=== PATIENT | female | born 1930 | race Caucasian/White ===

== ENCOUNTER 2017-06-09 10:17 | Emergency (ER) | payer OTHER ==
[~2017-06-09] VITALS: Ht 162.6 cm; Wt 55.0 kg
[2017-06-09 10:25] VITALS: BP 172/74; PULSE 80; RESP 20; TEMP 97.9; O2SAT 99
[2017-06-09] MEDS ORDERED: METF1000 PO (10:31)
[2017-06-09] MEDS ORDERED: GLIP5TAB8 PO (10:31)
[2017-06-09] MEDS ORDERED: LOTE20TA PO (10:31)
[2017-06-09] MEDS ORDERED: MELO7.5T27 PO (10:31)
[2017-06-09 10:53] LABS: AUTOMATED NEUTROPHIL # 4.4 TH/MM3 (1.8-7.7); BASOPHIL # 0.1 TH/MM3 (0-0.2); BASOPHIL % 0.9 % (0.0-2.0); EOSINOPHIL # 0.1 TH/MM3 (0-0.4); EOSINOPHIL % 1.8 % (0.0-4.0); HEMATOCRIT 37.2 % (35.0-46.0); HEMOGLOBIN 12.3 GM/DL (11.6-15.3); LYMPH % 19.6 % (9.0-44.0); LYMPHOCYTE # 1.2 TH/MM3 (1.0-4.8); MEAN CELL VOLUME 87.8 FL (80.0-100.0); MEAN CORPUSCULAR HEMOGLOBIN 29.1 PG (27.0-34.0); MEAN CORPUSCULAR HGB CONC 33.1 % (32.0-36.0); MEAN PLATELET VOLUME 7.6 FL (7.0-11.0); MONO % 5.6 % (0.0-8.0); MONOCYTE # 0.3 TH/MM3 (0-0.9); NEUT % 72.1 % (16.0-70.0); PLATELET COUNT 444 TH/MM3 (150-450); RED BLOOD COUNT 4.24 MIL/MM3 (4.00-5.30); RED CELL DISTRIBUTION WIDTH 14.3 % (11.6-17.2); WHITE BLOOD COUNT 6.1 TH/MM3 (4.0-11.0)
[2017-06-09 11:12] LABS: ALBUMIN 3.8 GM/DL (3.4-5.0); BICARBONATE 26.9 MEQ/L (21.0-32.0); BLOOD UREA NITROGEN 20 MG/DL (7-18); CALCIUM 8.6 MG/DL (8.5-10.1); CHLORIDE 105 MEQ/L (98-107); CREATININE 0.93 MG/DL (0.50-1.00); GLOMERULAR FILTRATION RATE 57 ML/MIN (>89); GLUCOSE,RANDOM 193 MG/DL (74-106); SODIUM (NA) 138 MEQ/L (136-145)
[2017-06-09 11:15] LABS: ALKALINE PHOSPHATASE 38 U/L (45-117); ALT (GPT) 32 U/L (10-53); AST (GOT) 31 U/L (15-37); TOTAL BILIRUBIN ADULT 0.3 MG/DL (0.2-1.0); TOTAL PROTEIN 6.9 GM/DL (6.4-8.2)
--- NOTE | 2017-06-09 11:44 | PD ---
HPI Chief Complaint: General Weakness Time Seen by Provider: 11:25 Travel History International Travel<30 days: No Contact w/Intl Traveler<30days: No Traveled to known affect area: No History of Present Illness HPI 86-year-old female that presents to the ED for evaluation of generalized weakness. Apparently per patient she woke up feeling weak. Patient apparently had complained to the senior living that she was feeling somewhat weak today when she woke up. She noted anything and she does have a history of diabetes and states that she took her medications. She took glipizide and metformin. She states that for the most part now since she's been here she's been feeling better. Per ED nurse she had a blood sugar of 55 and was given oral glucose as well as Gatorade and food and her sugars went up. Patient currently walking and ambulatory in no sign of acute distress. Denies any urinary or bowel movement issues. No nausea or vomiting. No chest or shortness of breath. She was dysuria is to go home when I go to evaluate her. She denies ever falling or injuring her head. She denies any blood thinner use. She denies any symptoms at this time. Allergy to sulfa. [facility] Past Medical History Arthritis: Yes Cardiovascular Problems: Yes Diabetes: Yes Patient Takes Glucophage: Yes Hypertension: Yes Tetanus Vaccination: Unknown Past Surgical History Appendectomy: Yes Hysterectomy: Yes Social History Alcohol Use: No Tobacco Use: No Substance Use: No Allergies-Medications (Allergen,Severity, Reaction): Coded Allergies: Sulfa (Sulfonamide Antibiotics) (Unverified Allergy, Severe, 06/09/17) RASH,MOUTH REYES Uncoded Allergies: SULFA-RASH, MOUTH REYES (Allergy, Unknown, 09/25/03) Reported Meds & Prescriptions Reported Meds & Active Scripts Active Reported Glipizide 5 Mg Tab 5 Mg PO BIDAC Take 30 minutes before a meal Meloxicam 7.5 Mg Tab 7.5 Mg PO BID Metformin (Metformin HCl) 1,000 Mg Tab 1,000 Mg PO BIDPC Lotensin (Benazepril HCl) 20 Mg Tab 20 Mg PO DAILY Review of Systems Except as stated in HPI: all other systems reviewed are Neg Physical Exam Narrative GENERAL: SKIN: Warm and dry. HEAD: Atraumatic. Normocephalic. EYES: Pupils equal and round 4 mm reactive to light and accommodation.. No scleral icterus. No injection or drainage. ENT: No nasal bleeding or discharge. Mucous membranes pink and moist. Tongue is midline. No uvula deviation. NECK: Trachea midline. No JVD. CARDIOVASCULAR: Regular rate and rhythm. No murmurs, S3, S4. RESPIRATORY: No accessory muscle use. Clear to auscultation. Breath sounds equal bilaterally. GASTROINTESTINAL: Abdomen soft, non-tender, nondistended. Hepatic and splenic margins not palpable. MUSCULOSKELETAL: Extremities without clubbing, cyanosis, or edema. No obvious deformities. Full range of motion of the upper and lower extremities bilaterally. 2+ pulses bilaterally. NEUROLOGICAL: Awake and alert. No obvious cranial nerve deficits. Motor grossly within normal limits. Five out of 5 muscle strength in the arms and legs. Normal speech. PSYCHIATRIC: Appropriate mood and affect; insight and judgment normal. Data Data Last Documented VS Vital Signs Date Time Temp Pulse Resp B/P (MAP) Pulse Ox O2 Delivery O2 Flow Rate FiO2 06/09/17 10:25 97.9 80 20 172/74 (106) 99 Orders Orders Blood Glucose (06/09/17 10:31) Electrocardiogram (06/09/17 10:31) Complete Blood Count With Diff (06/09/17 10:31) Comprehensive Metabolic Panel (06/09/17 10:31) Iv Access Insert/Monitor (06/09/17 10:31) Ed Discharge Order (06/09/17 11:37) Labs Laboratory Tests Test 06/09/17 10:35 White Blood Count 6.1 TH/MM3 Red Blood Count 4.24 MIL/MM3 Hemoglobin 12.3 GM/DL Hematocrit 37.2 % Mean Corpuscular Volume 87.8 FL Mean Corpuscular Hemoglobin 29.1 PG Mean Corpuscular Hemoglobin Concent 33.1 % Red Cell Distribution Width 14.3 % Platelet Count 444 TH/MM3 Mean Platelet Volume 7.6 FL Neutrophils (%) (Auto) 72.1 % Lymphocytes (%) (Auto) 19.6 % Monocytes (%) (Auto) 5.6 % Eosinophils (%) (Auto) 1.8 % Basophils (%) (Auto) 0.9 % Neutrophils # (Auto) 4.4 TH/MM3 Lymphocytes # (Auto) 1.2 TH/MM3 Monocytes # (Auto) 0.3 TH/MM3 Eosinophils # (Auto) 0.1 TH/MM3 Basophils # (Auto) 0.1 TH/MM3 CBC Comment DIFF FINAL Differential Comment Blood Urea Nitrogen 20 MG/DL Creatinine 0.93 MG/DL Random Glucose 193 MG/DL Total Protein 6.9 GM/DL Albumin 3.8 GM/DL Calcium Level 8.6 MG/DL Alkaline Phosphatase 38 U/L Aspartate Amino Transf (AST/SGOT) 31 U/L Alanine Aminotransferase (ALT/SGPT) 32 U/L Total Bilirubin 0.3 MG/DL Sodium Level 138 MEQ/L Potassium Level 4.1 MEQ/L Chloride Level 105 MEQ/L Carbon Dioxide Level 26.9 MEQ/L Anion Gap 6 MEQ/L Estimat Glomerular Filtration Rate 57 ML/MIN MDM Medical Decision Making Medical Screen Exam Complete: Yes Emergency Medical Condition: Yes Medical Record Reviewed: Yes Interpretation(s) CBC & BMP Diagram 06/09/17 10:35 Total Protein 6.9, Albumin 3.8, Calcium Level 8.6, Alkaline Phosphatase 38 L, Aspartate Amino Transf (AST/SGOT) 31, Alanine Aminotransferase (ALT/SGPT) 32, Total Bilirubin 0.3 Differential Diagnosis Hypoglycemia versus weakness versus normal exam Narrative Course 86-year-old female that presents to the ED for evaluation of generalized weakness and hypoglycemia. Patient was properly examined and was found to have signs and symptoms consistent with a symptomatic hypoglycemia. Patient does tell me that yesterday she did not eat. She does take glipizide and metformin and she did took her medications today per patient. Patient was found to have a blood sugar 55. Here her blood sugar has been in the 170s and patient appears to be completely symptomatic. She is ambulating in acute distress. No other focal findings noted. Patient had basic blood work done by triage before I went into the room and it shows no sign of acute disease. Patient is here is to go home. Case was discussed in my attending Dr. Farrell who agrees that the patient can be discharged back to facility with instructions to monitor her blood sugars. Follow up with PCP. See ED if worst. Diagnosis Primary Impression: Hypoglycemia Patient Instructions: General Instructions Additional Instructions: Follow with PCP. See ED worsening symptoms. Monitor blood sugars. Med/Other Pt SpecificInfo: No Change to Meds Disposition: 01 DISCHARGE HOME Condition: Stable Wiley Chin Jun 09, 2017 11:43
[2017-06-09 13:48] VITALS: BP 146/69
--- NOTE | 2017-06-10 16:03 | EKG ---
Date Performed: 06/09/2017 Time Performed: 10:52:13 PTAGE: 86 years EKG: Sinus rhythm ST DEVIATION AND MODERATE T-WAVE ABNORMALITY, CONSIDER LATERAL ISCHEMIA ABNORMAL ECG PREVIOUS TRACING : 08/21/1999 14.41 Since previous tracing, no significant change noted DOCTOR: Artemio Gross Interpretating Date/Time 06/10/2017 16:02:39
== END 2017-06-09 13:52 | disposition home or self-care (01) ==
LOC: NEPE 10:17 → NEDAMB 13:52
DX: E11.649 Type 2 diabetes mellitus with hypoglycemia without coma (principal); I10 Essential (primary) hypertension; M19.90 Unspecified osteoarthritis, unspecified site
CPT/HCPCS: 80053; 85025; 93005; 99284

== ENCOUNTER 2018-04-06 21:51 | Inpatient (IN) ==
--- NOTE | 2018-04-06 22:20 | ED ---
HPI General Chief Complaint: Altered Mental Status Stated Complaint: Confussion/SDFR Time Seen by Provider: 04/06/18 22:10 Source: patient and EMS Mode of arrival: EMS Limitations: altered mental status History of Present Illness HPI narrative: 87-year-old female presents to the emergency department from home by EMS transport after neighbors reportedly found her on the floor and closed in her home. They noted that she appeared more confused than her baseline. The patient here does not recall being found on the floor does not recall her neighbors coming to her house. This occurred just prior to arrival of EMS bringing the patient to the hospital. Patient has history of diabetes. Patient reports she lives alone. Patient reports she has not eaten well today. Patient denies having a fall or injury. Paramedics report that patient was found by friends who reportedly do not routinely check on her but noticed her to be on the floor called paramedics to transfer the patient blood sugar was stable blood pressure was mildly elevated patient was identified as superficial abrasion to the right forearm no other injuries were identified. Patient here is oriented to the month of March thinks it is the third day of the week does not know the year is aware that she is in the hospital does not know how she arrived here. Denies any head pain neck pain back pain chest pain rib pain abdominal pain pelvic pain or extremity pain. Denies any recent fever denies shortness of breath. Denies being nauseated. Does not report any vomiting or diarrhea. Patient is unable to identify her medication list. Patient is very concerned that her best friend Tonny will be concerned about her not being home. No other information available. MD complaint: Reports altered mental status, confusion and weakness; Denies decreased responsiveness and intoxication Onset (ago): hour(s) (reportedly awakened at 9 AM this morning ) Timing confirmed by: other (patient) Severity: moderate Consistency of symptoms: unknown Context: Reports trauma (found on the floor) and diabetes; Denies change in medication Associated symptoms: Denies chest pain, cough, diaphoresis, fever, chills, headaches, loss of appetite, malaise, nausea/vomiting, rash, seizure, shortness of breath, syncope, weakness, foul smelling urine, difficulty walking, diarrhea and incontinence Treatments prior to arrival: Reports other (none) Related Data Home Medications Medication Instructions Recorded Confirmed Unable to Obtain Home Meds 11/08/18 11/08/18 Allergies Allergy/AdvReac Type Severity Reaction Status Date / Time Sulfa (Sulfonamide Allergy Severe Confusion Unverified 04/06/18 22:14 Antibiotics) Review of Systems ROS: all other systems reviewed are negative PMFSH History History Provided By: Medical Record (Diabetes hypertension cholecystectomy appendectomy) Medical History Medical History Diabetes (Acute) High blood pressure (Acute) Social History Social History Smoking Status: Never smoker How Often Do You Have a Drink Containing Alcohol: Unable to Obtain Recent Out of Country Travel within the Last 8 Weeks: No Exam Narrative Exam Narrative: GENERAL: Well-developed pleasant elderly female in no acute respiratory distress oriented to person place and month but not events. SKIN: Focused skin assessment warm/dry. Superficial skin tear to the right dorsal forearm. HEAD: Atraumatic. Normocephalic. No scalp soft tissue swelling or tenderness to palpation no bony abnormality. EYES: Pupils equal and round and reactive to light. No scleral icterus. No injection or drainage. ENT: No nasal bleeding or discharge. Mucous membranes pink and moist. Airway is patent NECK: Trachea midline. No JVD. No midline tenderness to direct palpation along the cervical spine. No bony step-off CARDIOVASCULAR: Regular rate and rhythm. No murmur appreciated. RESPIRATORY: No accessory muscle use. Clear to auscultation. Breath sounds equal bilaterally. GASTROINTESTINAL: Abdomen soft, non-tender, nondistended. Hepatic and splenic margins not palpable. MUSCULOSKELETAL: No obvious deformities. No clubbing. No cyanosis. No edema. Radial dorsalis pedis pulses 2+ to palpation. NEUROLOGICAL: Awake and alert. GCS 15 mildly confused regarding events. No obvious cranial nerve deficits. Motor grossly within normal limits. Normal speech. PSYCHIATRIC: Appropriate mood and affect; insight and judgment normal. Course Initial Documented Vital Signs Temperature 98.4 F 04/06/18 22:17 Pulse Rate 86 04/06/18 22:17 Respiratory Rate 18 04/06/18 22:17 Blood Pressure 193/99 H 04/06/18 22:17 Pulse Oximetry 94 L 04/06/18 22:17 Last Documented Vital Signs Temperature 98.4 F 04/06/18 22:17 Pulse Rate 82 04/06/18 23:53 Respiratory Rate 18 04/06/18 23:53 Blood Pressure 163/76 H 04/06/18 23:53 Pulse Oximetry 95 04/06/18 23:53 Medical Decision Making MDM Narrative Medical decision making narrative: 87-year-old female presents with mild confusion after reportedly being found on the floor in her home by her neighbors. IV access obtained specimens collected and sent for resulting EKG ordered which identifies sinus rhythm rate [address] elevation or injury pattern artifact is present at baseline. Patient was placed on conveyor monitor with continuous pulse oximetry. Labs resulted patient identified to have mild leukocytosis with left shift urinalysis is abnormal with many bacteria also identified to have moderate blood with only 4 RBCs and CK is elevated at 1700 concerning for rhabdomyolysis cultures obtained and lactic acid ordered due to white count elevation and urinalysis abnormality will start on antibiotic after blood cultures obtained rule out sepsis at this time patient is not tachycardic she is not tachypneic she is not febrile and she is normotensive to elevated blood pressure. Patient also identified to have mild renal insufficiency most likely reflecting her renal function due to long duration on the floor possibly and rhabdomyolysis. CT brain noncontrast reveals no bleed extensive ischemic and microvascular disease changes also noted to have possibly age-indeterminate lacunar infarct. Patient's case discussed with on-call medicine service [facility], Dr Travis, for admission. Medical Screen Exam Complete: Yes Emergency Medical Condition: Yes Lab Data Result diagrams: 04/06/18 22:30 04/06/18 22:30 Lab Results 04/06/18 04/06/18 04/06/18 Range/Units 22:30 22:30 22:30 WBC 13.3 H (4.0-11.0) th/mm3 RBC 4.29 (4.00-5.30) mil/mm3 Hgb 12.6 (11.6-15.3) gm/dL Hct 38.1 (35.0-46.0) % MCV 88.9 (80.0-100.0) fL MCH 29.5 (27.0-34.0) pg MCHC 33.2 (32.0-36.0) % RDW 14.2 (11.6-17.2) % Plt Count 420 (150-450) th/mm3 MPV 8.5 (7.0-11.0) fL Neut % (Auto) 87.7 H (16.0-70.0) % Lymph % (Auto) 6.6 L (9.0-44.0) % [place] % (Auto) 5.3 (0.0-8.0) % Eos % (Auto) 0.1 (0.0-4.0) % Baso % (Auto) 0.3 (0.0-2.0) % Neut # (Auto) 11.6 H (1.8-7.7) th/mm3 Lymph # (Auto) 0.9 L (1.0-4.8) th/mm3 [place] # (Auto) 0.7 (0.0-0.9) th/mm3 Eos # (Auto) 0.0 (0.0-0.4) th/mm3 Baso # (Auto) 0.0 (0.0-0.2) th/mm3 WBC Differential . Differential Comment Auto diff final PT 11.4 (9.8-11.6) sec INR 1.1 Ratio APTT 22.1 L (23.4-31.7) sec Sodium 141 (136-145) meq/L Potassium 3.7 (3.5-5.1) meq/L Chloride 104 (98-107) meq/L Carbon Dioxide 24.3 (21.0-32.0) meq/L Anion Gap 13 (5-15) meq/L BUN 32 H (7-18) mg/dL Creatinine 1.01 H (0.50-1.00) mg/dL Estimated GFR 52 L (>89) mL/min POC Glucose (68-110) mg/dl Random Glucose 252 H (74-106) mg/dL Calcium 8.9 (8.5-10.1) mg/dL Magnesium 1.7 (1.5-2.5) mg/dL Total Bilirubin 0.9 (0.2-1.0) mg/dL AST 53 H (15-37) U/L ALT 35 (10-53) U/L Alkaline Phosphatase 46 (45-117) U/L Ammonia (11-32) mcmol/L Total Creatine Kinase 1762 H (26-192) U/L CK-MB (CK-2) 18.2 H (0.5-3.6) ng/mL CK-MB (CK-2) % 1.0 (0.0-4.0) % Troponin I Less than 0.02 L (0.02-0.05) ng/mL Total Protein 7.2 (6.4-8.2) g/dL Albumin 3.9 (3.4-5.0) g/dL TSH 1.220 (0.358-3.740) uIU/mL Urine Color (Yellw/Straw) Urine Clarity (Clear) Urine pH (5.0-8.5) Ur Specific [place] (1.002-1.035) Urine Protein (Neg-Trace) mg/dL Urine Glucose (UA) (Negative) mg/dL Urine Ketones (Negative) mg/dL Urine Occult Blood (Negative) Urine Nitrate (Negative) Urine Bilirubin (Negative) Urine Urobilinogen (Less than 2) mg/dL Ur Leukocyte Esterase (Negative) Urine RBC (0-3) /hpf Urine WBC (0-5) /hpf Urine WBC Clumps (None) Urine Bacteria (None) /hpf Hyaline Casts (0-3) /lpf Urine Mucus (Occasional) /lpf Micro UA Comment Ur Microscopic Review Urine Culture Comments Urine Opiates Screen (Neg) Ur Barbiturates Screen (Neg) Ur Amphetamines Screen (Neg) U Benzodiazepines Scrn (Neg) Urine Cocaine Screen (Neg) U Cannabinoids Screen (Neg) Serum Alcohol Less than 3 (0-5) mg/dL 04/06/18 04/06/18 04/06/18 Range/Units 22:30 22:30 22:30 WBC (4.0-11.0) th/mm3 RBC (4.00-5.30) mil/mm3 Hgb (11.6-15.3) gm/dL Hct (35.0-46.0) % MCV (80.0-100.0) fL MCH (27.0-34.0) pg MCHC (32.0-36.0) % RDW (11.6-17.2) % Plt Count (150-450) th/mm3 MPV (7.0-11.0) fL Neut % (Auto) (16.0-70.0) % Lymph % (Auto) (9.0-44.0) % [place] % (Auto) (0.0-8.0) % Eos % (Auto) (0.0-4.0) % Baso % (Auto) (0.0-2.0) % Neut # (Auto) (1.8-7.7) th/mm3 Lymph # (Auto) (1.0-4.8) th/mm3 [place] # (Auto) (0.0-0.9) th/mm3 Eos # (Auto) (0.0-0.4) th/mm3 Baso # (Auto) (0.0-0.2) th/mm3 WBC Differential Differential Comment PT (9.8-11.6) sec INR Ratio APTT (23.4-31.7) sec Sodium (136-145) meq/L Potassium (3.5-5.1) meq/L Chloride (98-107) meq/L Carbon Dioxide (21.0-32.0) meq/L Anion Gap (5-15) meq/L BUN (7-18) mg/dL Creatinine (0.50-1.00) mg/dL Estimated GFR (>89) mL/min POC Glucose (68-110) mg/dl Random Glucose (74-106) mg/dL Calcium (8.5-10.1) mg/dL Magnesium (1.5-2.5) mg/dL Total Bilirubin (0.2-1.0) mg/dL AST (15-37) U/L ALT (10-53) U/L Alkaline Phosphatase (45-117) U/L Ammonia Less than 10 L (11-32) mcmol/L Total Creatine Kinase (26-192) U/L CK-MB (CK-2) (0.5-3.6) ng/mL CK-MB (CK-2) % (0.0-4.0) % Troponin I (0.02-0.05) ng/mL Total Protein (6.4-8.2) g/dL Albumin (3.4-5.0) g/dL TSH (0.358-3.740) uIU/mL Urine Color Yellow (Yellw/Straw) Urine Clarity Cloudy H (Clear) Urine pH 5.0 (5.0-8.5) Ur Specific [place] 1.012 (1.002-1.035) Urine Protein 30 H (Neg-Trace) mg/dL Urine Glucose (UA) 500 or greater (Negative) mg/dL Urine Ketones 20 (Negative) mg/dL Urine Occult Blood Moderate H (Negative) Urine Nitrate Positive H (Negative) Urine Bilirubin Negative (Negative) Urine Urobilinogen Less than 2 (Less than 2) mg/dL Ur Leukocyte Esterase Large H (Negative) Urine RBC 4 H (0-3) /hpf Urine WBC 159 H (0-5) /hpf Urine WBC Clumps Few H (None) Urine Bacteria Many H (None) /hpf Hyaline Casts 2 (0-3) /lpf Urine Mucus Few H (Occasional) /lpf Micro UA Comment Cath-culture ind Ur Microscopic Review Not Reportable Urine Culture Comments Cath-cult indicated Urine Opiates Screen Neg (Neg) Ur Barbiturates Screen Neg (Neg) Ur Amphetamines Screen Neg (Neg) U Benzodiazepines Scrn Pos H (Neg) Urine Cocaine Screen Neg (Neg) U Cannabinoids Screen Neg (Neg) Serum Alcohol (0-5) mg/dL 04/06/18 Range/Units 22:36 WBC (4.0-11.0) th/mm3 RBC (4.00-5.30) mil/mm3 Hgb (11.6-15.3) gm/dL Hct (35.0-46.0) % MCV (80.0-100.0) fL MCH (27.0-34.0) pg MCHC (32.0-36.0) % RDW (11.6-17.2) % Plt Count (150-450) th/mm3 MPV (7.0-11.0) fL Neut % (Auto) (16.0-70.0) % Lymph % (Auto) (9.0-44.0) % [place] % (Auto) (0.0-8.0) % Eos % (Auto) (0.0-4.0) % Baso % (Auto) (0.0-2.0) % Neut # (Auto) (1.8-7.7) th/mm3 Lymph # (Auto) (1.0-4.8) th/mm3 [place] # (Auto) (0.0-0.9) th/mm3 Eos # (Auto) (0.0-0.4) th/mm3 Baso # (Auto) (0.0-0.2) th/mm3 WBC Differential Differential Comment PT (9.8-11.6) sec INR Ratio APTT (23.4-31.7) sec Sodium (136-145) meq/L Potassium (3.5-5.1) meq/L Chloride (98-107) meq/L Carbon Dioxide (21.0-32.0) meq/L Anion Gap (5-15) meq/L BUN (7-18) mg/dL Creatinine (0.50-1.00) mg/dL Estimated GFR (>89) mL/min POC Glucose 249 H (68-110) mg/dl Random Glucose (74-106) mg/dL Calcium (8.5-10.1) mg/dL Magnesium (1.5-2.5) mg/dL Total Bilirubin (0.2-1.0) mg/dL AST (15-37) U/L ALT (10-53) U/L Alkaline Phosphatase (45-117) U/L Ammonia (11-32) mcmol/L Total Creatine Kinase (26-192) U/L CK-MB (CK-2) (0.5-3.6) ng/mL CK-MB (CK-2) % (0.0-4.0) % Troponin I (0.02-0.05) ng/mL Total Protein (6.4-8.2) g/dL Albumin (3.4-5.0) g/dL TSH (0.358-3.740) uIU/mL Urine Color (Yellw/Straw) Urine Clarity (Clear) Urine pH (5.0-8.5) Ur Specific [place] (1.002-1.035) Urine Protein (Neg-Trace) mg/dL Urine Glucose (UA) (Negative) mg/dL Urine Ketones (Negative) mg/dL Urine Occult Blood (Negative) Urine Nitrate (Negative) Urine Bilirubin (Negative) Urine Urobilinogen (Less than 2) mg/dL Ur Leukocyte Esterase (Negative) Urine RBC (0-3) /hpf Urine WBC (0-5) /hpf Urine WBC Clumps (None) Urine Bacteria (None) /hpf Hyaline Casts (0-3) /lpf Urine Mucus (Occasional) /lpf Micro UA Comment Ur Microscopic Review Urine Culture Comments Urine Opiates Screen (Neg) Ur Barbiturates Screen (Neg) Ur Amphetamines Screen (Neg) U Benzodiazepines Scrn (Neg) Urine Cocaine Screen (Neg) U Cannabinoids Screen (Neg) Serum Alcohol (0-5) mg/dL Imaging Data Radiologist's impression: Chest X-Ray 04/06/18 22:10 CONCLUSION: 1. Prominent aortic arch, age indeterminate. I don't have any pertinent priors. If felt clinically indicated, CT of the chest with contrast is suggested. 2. Lungs appear clear. 3. Scoliosis. Head CT 04/06/18 22:10 CONCLUSION: 1. No acute intracranial abnormality. 2. Atrophy and chronic small vessel ischemic change. 3. 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 . Pelvis X-Ray 04/06/18 22:12 CONCLUSION: Intact pelvis. ECG Data EKG Prior to Arrival: No Attestation: I personally reviewed and interpreted this ECG as follows: (EKG normal sinus rhythm rate [address] elevation or injury pattern nonspecific ST segment flattening in V5 and V6 artifact is present at baseline.) Discharge Plan Physicians Team ED Provider: Dian Moore Primary Care Provider: UNKNOWN, Rxs /Orders / Referrals /Forms Prescriptions: No Action Unable to Obtain Home Meds RF: 0 Discharge Interventions Interventions: Vital Signs Last Done: 04/06/18 23:53 Status ED Status: With Doctor
--- NOTE | 2018-04-06 22:47 | XR ---
EXAM DATE: 04/06/2018 10:43 PM EST AGE/SEX: 87 years / Female INDICATIONS: Pain due to fall. CLINICAL DATA: This is the patient's initial encounter. Patient reports that signs and symptoms have been present for 1 day and indicates a pain score of Nonresponsive. MEDICAL/SURGICAL HISTORY: Non-responsive. Non-responsive. COMPARISON: No prior exams available for comparison. FINDINGS: No infiltrate, effusion or pneumothorax demonstrated. Heart size within normal limits. Tortuous thoracic aorta. There is prominence in the arch region. I d on't have any pertinent priors. No acute bony abnormality demonstrated. Levoconvex curvature seen of the thoracic spine. CONCLUSION: 1. Prominent aortic arch, age indeterminate. I don't have any pertinent priors. If felt clinically i ndicated, CT of the chest with contrast is suggested. 2. Lungs appear clear. 3. Scoliosis. Electronically signed by: Wilberto Stein MD 04/06/2018 10:45 PM EST
--- NOTE | 2018-04-06 22:53 | XR ---
EXAM DATE: 04/06/2018 10:44 PM EST AGE/SEX: 87 years / Female INDICATIONS: Pain due to fall. CLINICAL DATA: This is the patient's initial encounter. Patient reports that signs and symptoms have been present for 1 day and indicates a pain score of Nonresponsive. MEDICAL/SURGICAL HISTORY: Non-responsive. Non-responsive. COMPARISON: No prior exams available for comparison. FINDINGS: Examination of the pelvis demonstrates no evidence of fracture or dislocation. Bony mineralization i s normal. There is no widening of the sacroiliac joints. No foreign body is identified. CONCLUSION: Intact pelvis. Electronically signed by: Wilberto Stein MD 04/06/2018 10:52 PM EST
[2018-04-06 23:13] LABS: Bacteria,Urine Many /hpf; Bilirubin,Urine Negative (Negative); Clarity,Urine Cloudy (Clear); Color,Urine Yellow (Yellw/Straw); Glucose,Urine (UA) 500 or Greater mg/dL (Negative); Hyaline Casts,Urine 2 /lpf (0-3); Leukocyte Esterase,Urine Large (Negative); Mucus,Urine Few /lpf (Occasional); Nitrite,Urine Positive (Negative); Specific Gravity,Urine 1.012 (1.002-1.035)
[2018-04-06 23:15] LABS: Baso % (Auto) 0.3 % (0.0-2.0); Eos % (Auto) 0.1 % (0.0-4.0); Hematocrit 38.1 % (35.0-46.0); Hemoglobin 12.6 gm/dL (11.6-15.3); Lymph # (Auto) 0.9 th/mm3 (1.0-4.8); Lymph % (Auto) 6.6 % (9.0-44.0); Mean Corpuscular HGB Conc 33.2 % (32.0-36.0); Mean Corpuscular Hemoglobin 29.5 pg (27.0-34.0); Mean Corpuscular Volume 88.9 fL (80.0-100.0); Mean Platelet Volume 8.5 fL (7.0-11.0); Mono # (Auto) 0.7 th/mm3 (0.0-0.9); Mono % (Auto) 5.3 % (0.0-8.0); Neut # (Auto) 11.6 th/mm3 (1.8-7.7); Neut % (Auto) 87.7 % (16.0-70.0); Platelet Count 420 th/mm3 (150-450); Red Blood Count 4.29 mil/mm3 (4.00-5.30); Red Cell Distribution Width 14.2 % (11.6-17.2); White Blood Count 13.3 th/mm3 (4.0-11.0)
[2018-04-06 23:19] LABS: Activated Partial Thrombo Time 22.1 sec (23.4-31.7); INR 1.1 Ratio; Prothrombin Time 11.4 sec (9.8-11.6)
[2018-04-06 23:27] LABS: Amphetamine Screen,Urine Neg (Neg); Barbiturate Screen,Urine Neg (Neg); Cannabinoid Screen,Urine Neg (Neg); Cocaine Screen,Urine Neg (Neg)
[2018-04-06 23:28] LABS: Alanine Aminotransferase 35 U/L (10-53); Albumin 3.9 g/dL (3.4-5.0); Anion Gap 13 meq/L (5-15); Aspartate Aminotransferase 53 U/L (15-37); Blood Urea Nitrogen 32 mg/dL (7-18); Calcium 8.9 mg/dL (8.5-10.1); Carbon Dioxide 24.3 meq/L (21.0-32.0); Chloride 104 meq/L (98-107); Glomerular Filtration Rate 52 mL/min (>89); Glucose,Random 252 mg/dL (74-106); Magnesium 1.7 mg/dL (1.5-2.5); Opiate Screen,Urine Neg (Neg); Potassium 3.7 meq/L (3.5-5.1); Sodium 141 meq/L (136-145)
[2018-04-06 23:42] LABS: Alkaline Phosphatase 46 U/L (45-117); Creatine Kinase 1762 U/L (26-192); Total Protein 7.2 g/dL (6.4-8.2)
[2018-04-06] MEDS ORDERED: Sodium Chlor 0.9% Inj 500 ML IV.SIG SCH (23:45)
[2018-04-06] MEDS ORDERED: Sod Chloride 0.9% Inj 1,000 ML IV.CONT SCH (23:45)
--- NOTE | 2018-04-06 23:51 | CT ---
EXAM DATE: 04/06/2018 11:41 PM EST AGE/SEX: 87 years / Female INDICATIONS: Altered mental status. CLINICAL DATA: This is the patient's initial encounter. Patient reports that signs and symptoms have been present for 1 day and indicates a pain score of 0/10. MEDICAL/SURGICAL HISTORY: Diabetes. Hypertension. None. RADIATION DOSE: 56.77 CTDI (mGy) COMPARISON: No prior exams available for comparison. TECHNIQUE: CT of the head without contrast. Using automated exposure control and adjustment of the mA and/or kV according to patient size, radiation dose was kept as low as reasonably achievable to ob tain optimal diagnostic quality images. DICOM format image data is available electronically for revi ew and comparison. FINDINGS: Cerebrum: Atrophy. Extensive periventricular low attenuation change involving both cerebral hemisphe res. A small focus of decreased attenuation involving the left thalamus. The ventricles are normal fo r age. No evidence of midline shift, mass lesion, hemorrhage or acute infarction. No extraaxial flu id collections are seen. Posterior Fossa: The cerebellum and brainstem are intact. The 4th ventricle is midline. The cerebe llopontine angle is unremarkable. Extracranial: The visualized portion of the orbits is intact. Skull: The calvaria is intact. No evidence of skull fracture. CONCLUSION: 1. No acute intracranial abnormality. 2. Atrophy and chronic small vessel ischemic change. 3. 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 . Electronically signed by: Jamarcus Griffin MD 04/06/2018 11:50 PM EST
[2018-04-06 23:55] LABS: Creatine Kinase MB 18.2 ng/mL (0.5-3.6)
[2018-04-07] MEDS ORDERED: Bisacodyl 10 MG Supp RECTAL PRN (00:14)
[2018-04-07] MEDS ORDERED: Dextrose 50% in Water 50 ML Vial IV.PUSH PRN (00:14)
--- NOTE | 2018-04-07 04:57 | P.HPIM ---
History of Present Illness Primary Care Physician: UNKNOWN History of Present Illness: 87-year-old female diabetes who is found on the floor in her home by neighbors. History is limited by confusion. Patient is very pleasant however. Says the year is 1917, and that it is April. She says that she was feeling depressed yesterday, on account of the weather, decided not to take any of her medications. She is not sure what her medications are. She says she is feeling all right however. She denies taking any kind of benzodiazepine, however drug screen is positive for benzodiazepine. She denies any fevers, chills, chest pain, shortness of breath, nausea, vomiting, diarrhea, constipation, dysuria. Inpatient Certification: I certify that the inpatient services were ordered in accordance with Medicare regulations governing the order. This includes certification that hospital inpatient services are reasonable and necessary and in the case of services not specified as inpatient-only under 42 CFR 419.22(n), that they are appropriately provided as inpatient services in accordance to with the 2-midnight benchmark under 43 CFR 412.3(e) Estimated Total Length of Stay (Days): 2 Plans for Post Hospital Care: Home Review of Systems All other systems reviewed negative except as stated in HPI PMFSH - History History Provided By: Medical Record (Diabetes hypertension cholecystectomy appendectomy) - Medical History Medical History: Medical History (Last Updated 04/06/18 @ 22:15 by Mary Riley RN) Diabetes High blood pressure - Tobacco History Smoking Status: Never smoker - Alcohol History How Often Do You Have a Drink Containing Alcohol: Unable to Obtain - Travel History Recent Travel Out of the Country Within the Last 8 Weeks: No - Immunization History Tetanus Immunization: Unsure Medications and Allergies Active Medications: Active Medications Al Hydroxide/Mg Hydroxide (Milk Of Magnann Liq) 30 ml PO Q12H PRN PRN Reason: Mild Constipation Bisacodyl (Dulcolax Supp) 10 mg RECTAL DAILY PRN PRN Reason: SEVERE CONSITIPATION Dextrose (D50w Vial) 50 ml IV.PUSH UNSCH PRN PRN Reason: PER HYPOGLYCEMIA PROTOCOL Glucagon (Glucagon Inj) 1 mg OTHER PRN PRN PRN Reason: for Hypoglycemia Protocol Ceftriaxone Sodium 1,000 mg/ (Sodium Chloride) 100 mls @ 200 mls/hr IV.SIG Q24H ALEIDA Sodium Chloride (Ns Inj) 1,000 mls @ 100 mls/hr IV.CONT .Q10H ALEIDA Insulin Aspart (Novolog Insulin Correctional Sugar Inj) 0 unit SQ ACHS ALEIDA; Protocol Lactulose (Lactulose Liq) 30 ml PO DAILY PRN PRN Reason: SEVERE CONSITIPATION Sennosides (Senokot) 17.2 mg PO Q12H PRN PRN Reason: Moderate Constipation Sodium Chloride (Ns Flush) 2 ml IV.FLUSH PRN PRN PRN Reason: FLUSH AFTER USING IV ACCESS Allergies Allergy/AdvReac Type Severity Reaction Status Date / Time Sulfa (Sulfonamide Allergy Severe Confusion Unverified 04/06/18 22:14 Antibiotics) Home Medications Medication Instructions Recorded Confirmed Type Unable to Obtain Home Meds 04/06/18 04/06/18 History Exam Vital signs: Vital Signs 04/06/18 22:17 04/06/18 22:27 04/06/18 22:36 Temperature 98.4 F Pulse Rate 86 Respiratory Rate 18 Blood Pressure 193/99 H 175/81 H Pulse Oximetry 94 L 96 04/06/18 23:53 04/07/18 01:46 Temperature Pulse Rate 82 85 Respiratory Rate 18 18 Blood Pressure 163/76 H 168/81 H Pulse Oximetry 95 95 Intake & Output 04/06/18 04/06/18 04/07/18 06:59 18:59 06:59 Intake Total 600 / 600 Balance 600 / 600 Weight 58.967 kg Intake: IV 600 / 600 NS Inj 500 ML @ 1000 mls/hr IV. 500 / 500 SIG BOLUS ALEIDA Rx#:[id number] Rocephin Inj 1,000 MG In NS Inj 100 / 100 100 ML @ 200 mls/hr IV.SIG ONCE ONE Rx#:[id number] Narrative: GENERAL: Patient lying in bed. Appears comfortable. She is very pleasant. She knows she is at [facility], knows her name, however thinks it is May 17, 1916. He was confused when I tell her it is 2017 SKIN: Warm and dry. HEAD: Atraumatic. Normocephalic. EYES: Pupils equal and round. No scleral icterus. No injection or drainage. ENT: No nasal bleeding or discharge. Mucous membranes pink and moist. NECK: Trachea midline. No JVD. CARDIOVASCULAR: Regular rate and rhythm. RESPIRATORY: No accessory muscle use. Clear to auscultation. Breath sounds equal bilaterally. GASTROINTESTINAL: Abdomen soft, non-tender, nondistended. Hepatic and splenic margins not palpable. MUSCULOSKELETAL: Extremities without clubbing, cyanosis, or edema. No obvious deformities. NEUROLOGICAL: Awake and alert. No obvious cranial nerve deficits. Motor grossly within normal limits. Five out of 5 muscle strength in the arms and legs. Normal speech. PSYCHIATRIC: Appropriate mood and affect; insight and judgment normal. Results - Labs CBC & Chem 7: 04/06/18 22:30 04/06/18 22:30 Labs: Short CBC 04/06/18 Range/Units 22:30 WBC 13.3 H (4.0-11.0) th/mm3 Hgb 12.6 (11.6-15.3) gm/dL Hct 38.1 (35.0-46.0) % Plt Count 420 (150-450) th/mm3 BMP 04/06/18 22:30 Sodium 141 Potassium 3.7 Chloride 104 Carbon Dioxide 24.3 BUN 32 H Creatinine 1.01 H Calcium 8.9 Cardiac Enzymes 04/06/18 Range/Units 22:30 Total Creatine Kinase 1762 H (26-192) U/L CK-MB (CK-2) 18.2 H (0.5-3.6) ng/mL Troponin I Less than 0.02 L (0.02-0.05) ng/mL Liver Function 04/06/18 Range/Units 22:30 Total Bilirubin 0.9 (0.2-1.0) mg/dL AST 53 H (15-37) U/L ALT 35 (10-53) U/L Alkaline Phosphatase 46 (45-117) U/L Albumin 3.9 (3.4-5.0) g/dL Urine 04/06/18 Range/Units 22:30 Urine Color Yellow (Yellw/Straw) Urine Clarity Cloudy H (Clear) Urine pH 5.0 (5.0-8.5) Ur Specific [place] 1.012 (1.002-1.035) Urine Protein 30 H (Neg-Trace) mg/dL Urine Glucose (UA) 500 or greater (Negative) mg/dL - Imaging Impressions Chest X-Ray 04/06/18 22:10 CONCLUSION: 1. Prominent aortic arch, age indeterminate. I don't have any pertinent priors. If felt clinically indicated, CT of the chest with contrast is suggested. 2. Lungs appear clear. 3. Scoliosis. Head CT 04/06/18 22:10 CONCLUSION: 1. No acute intracranial abnormality. 2. Atrophy and chronic small vessel ischemic change. 3. 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 . Pelvis X-Ray 04/06/18 22:12 CONCLUSION: Intact pelvis. Caprini VTE Risk Assessment Caprini VTE Risk Assessment: Moderate/High Risk (score >= 2) Caprini Risk Assessment Model: Point Value = 1 Point Value = 2 Point Value = 3 Point Value = 5 Age 41-60 Minor surgery BMI > 25 kg/m2 Swollen legs Varicose veins or History of unexplained or recurrent spontaneous Oral contraceptives or hormone replacement Sepsis (< 1 month) Serious lung disease, including pneumonia (< 1 month) Abnormal pulmonary function Acute myocardial infarction Congestive heart failure (< 1 month) History of inflammatory bowel disease Medical patient at bed rest Age 61-74 Arthroscopic surgery Major open surgery (> 45 min) Laparoscopic surgery (> 45 min) Malignancy Confined to bed (> 72 hours) Immobilizing plaster cast Central venous access Age >= 75 History of VTE Family history of VTE Factor V Leiden Prothrombin [id number] Lupus anticoagulant Anticardiolipin antibodies Elevated serum homocysteine Heparin-induced thrombocytopenia Other congenital or acquired thrombophilia Stroke (< 1 month) Elective arthroplasty Hip, pelvis, or leg fracture Acute spinal cord injury (< 1 month) Prophylaxis Regimen: Total Risk Factor Score Risk Level Prophylaxis Regimen 0-1 Low Early ambulation 2 Moderate Order ONE of the following: *Sequential Compression Device (SCD) *Heparin 5000 units SQ BID 3-4 Higher Order ONE of the following medications: *Heparin 5000 units SQ TID *Enoxaparin/Lovenox 40 mg SQ daily (WT < 150 kg, CrCl > 30 mL/min) *Enoxaparin/Lovenox 30 mg SQ daily (WT < 150 kg, CrCl > 10-29 mL/min) *Enoxaparin/Lovenox 30 mg SQ BID (WT < 150 kg, CrCl > 30 mL/min) AND/OR *Sequential Compression Device (SCD) 5 or more Highest Order ONE of the following medications: *Heparin 5000 units SQ TID (Preferred with Epidurals) *Enoxaparin/Lovenox 40 mg SQ daily (WT < 150 kg, CrCl > 30 mL/min) *Enoxaparin/Lovenox 30 mg SQ daily (WT < 150 kg, CrCl > 10-29 mL/min) *Enoxaparin/Lovenox 30 mg SQ BID (WT < 150 kg, CrCl > 30 mL/min) AND *Sequential Compression Device (SCD) Assessment and Plan - Plan //Suspected toxic encephalopathy Positive for benzodiazepines despite apparently not being on benzodiazepines. Discussed with nursing. Nursing will contact primary care office in the morning to go over medication list //UTI. //Leukocytosis of 13.3 on admission Urinalysis with white blood cells 159, white blood cell clumps and bacteria. Will start on IV antibiotics. Follow-up sensitivities. //Elevated CPK. 1762 on admission. Likely secondary to being on the floor for a day. Will monitor level. Start IV fluids //Diabetes mellitus. Glucose 252 on admission. Start insulin sliding scale. Discussed Condition With: Patient, nurse, ED physician
[2018-04-07 05:45] LABS: Troponin I 0.03 ng/mL (0.02-0.05)
[2018-04-07 05:57] LABS: CKMB Percent 0.8 % (0.0-4.0); Creatine Kinase MB 13.2 ng/mL (0.5-3.6)
[2018-04-07] MEDS: Insulin NovoLOG Aspart Correctional Sugar Inj SQ SCH ×4 (09:00→21:59)
[2018-04-07] MEDS: Sod Chloride 0.9% Inj 1,000 ML IV.CONT SCH ×2 (09:00→10:10)
[2018-04-07] MEDS: Magnesium Oxide 400 MG Tablet PO SCH ×2 (10:04→21:57)
[2018-04-07 12:28] LABS: Troponin I 0.02 ng/mL (0.02-0.05)
[2018-04-07 12:41] LABS: CKMB Percent 0.6 % (0.0-4.0)
--- NOTE | 2018-04-07 15:53 | ECG ---
Date Performed: 04/06/2018 Time Performed: 22:03:46 PTAGE: 87 years EKG: Sinus rhythm POSSIBLE LEFT ATRIAL ENLARGEMENT NONSPECIFIC ST & T-WAVE ABNORMALITY Since previous tracing, no sign ificant change noted BORDERLINE ECG PREVIOUS TRACING : 06/09/2017 10.52 DOCTOR: Andressa Penaloza Interpretating Date/Time 04/07/2018 15:52:07
--- NOTE | 2018-04-07 15:53 | ECG ---
Date Performed: 04/07/2018 Time Performed: 04:55:08 PTAGE: 87 years EKG: Sinus rhythm Extensive ST-T changes may be due to myocardial ischemia Since previous tracing, no significant wooten ge noted Abnormal ECG PREVIOUS TRACING : 04/06/2018 22.03 DOCTOR: Anrdessa Penaloza Interpretating Date/Time 04/07/2018 15:52:16
--- NOTE | 2018-04-07 15:54 | ECG ---
Date Performed: 04/07/2018 Time Performed: 07:05:47 PTAGE: 87 years EKG: Sinus rhythm ST DEVIATION AND MODERATE T-WAVE ABNORMALITY, CONSIDER LATERAL ISCHEMIA Since previous tracing, no s ignificant change noted ABNORMAL ECG PREVIOUS TRACING : 04/07/2018 04.55 DOCTOR: Andressa Penaloza Interpretating Date/Time 04/07/2018 15:52:23
--- NOTE | 2018-04-07 15:54 | ECG ---
Date Performed: 04/07/2018 Time Performed: 11:11:27 PTAGE: 87 years EKG: Sinus rhythm BORDERLINE LEFT AXIS DEVIATION NONSPECIFIC T-WAVE ABNORMALITY Since previous tracing, no significant change noted ABNORMAL ECG PREVIOUS TRACING : 04/07/2018 07.05 DOCTOR: Andressa Penaloza Interpretating Date/Time 04/07/2018 15:52:35
[2018-04-08 05:36] LABS: Baso # (Auto) 0.1 th/mm3 (0.0-0.2); Eos # (Auto) 0.6 th/mm3 (0.0-0.4); Eos % (Auto) 6.5 % (0.0-4.0); Hemoglobin 11.5 gm/dL (11.6-15.3); Lymph % (Auto) 22.7 % (9.0-44.0); Mean Corpuscular HGB Conc 33.8 % (32.0-36.0); Mean Corpuscular Hemoglobin 30.1 pg (27.0-34.0); Mean Corpuscular Volume 89.1 fL (80.0-100.0); Mono # (Auto) 0.8 th/mm3 (0.0-0.9); Mono % (Auto) 9.1 % (0.0-8.0); Neut # (Auto) 5.5 th/mm3 (1.8-7.7); Neut % (Auto) 60.7 % (16.0-70.0); Platelet Count 329 th/mm3 (150-450); Red Blood Count 3.82 mil/mm3 (4.00-5.30); Red Cell Distribution Width 14.4 % (11.6-17.2)
[2018-04-08 06:02] LABS: Carbon Dioxide 24.4 meq/L (21.0-32.0); Magnesium 1.8 mg/dL (1.5-2.5); Potassium 3.7 meq/L (3.5-5.1)
[2018-04-08 06:20] LABS: CKMB Percent 0.4 % (0.0-4.0); Creatine Kinase MB 3.1 ng/mL (0.5-3.6)
[2018-04-08] MEDS: Magnesium Oxide 400 MG Tablet PO SCH ×2 (09:04→20:34)
[2018-04-08] MEDS: Insulin NovoLOG Aspart Correctional Sugar Inj SQ SCH ×4 (09:10→20:33)
--- NOTE | 2018-04-08 10:26 | P.PN ---
Subjective Interval history: This is a pleasant 87 y/o Female with DM II, brought in due to AMS, Found dehydrated on admission with Rhabdomyolysis, UTI started on IV fluids and antibiotics Improving to baseline. 04/08: Seen in her bedroom, no nausea, vomit or diarrhea. Physical Exam Vital signs: Vital Signs 04/07/18 12:00 04/07/18 16:00 04/07/18 18:35 Temperature 98.1 F 97.9 F Pulse Rate 80 66 85 Respiratory Rate 24 18 Blood Pressure 145/69 H 113/63 Pulse Oximetry 93 L 94 L 04/07/18 19:15 04/07/18 19:58 04/08/18 00:10 Temperature 97.7 F 98.8 F Pulse Rate 80 75 73 Respiratory Rate 18 17 Blood Pressure 135/73 150/67 H Pulse Oximetry 97 92 L 04/08/18 00:11 04/08/18 04:00 04/08/18 04:47 Temperature 98.3 F Pulse Rate 70 75 73 Respiratory Rate 17 Blood Pressure 160/73 H Pulse Oximetry 93 L 04/08/18 08:00 Temperature 98 F Pulse Rate 82 Respiratory Rate 17 Blood Pressure 174/82 H Pulse Oximetry 91 L Intake & Output 04/07/18 04/08/18 04/08/18 18:59 06:59 18:59 Intake Total 1780 / 1780 1460 / 1460 Output Total 400 / 400 Balance 1380 / 1380 1460 / 1460 Weight 55 kg Intake: IV 500 / 500 1100 / 1100 NS Inj 1,000 ML @ 100 mls/hr IV 500 / 500 1000 / 1000 .CONT .Q10H ALEIDA Rx#:[id number] Rocephin Inj 1,000 MG In NS Inj 100 / 100 100 ML @ 200 mls/hr IV.SIG Q24H ALEIDA Rx#:[id number] Oral 1280 / 1280 360 / 360 Output: Urine 400 / 400 Other: # Voids 3 2 Date of Last Bowel Movement 04/07/18 04/07/18 # Bowel Movements 1 0 Narrative: GENERAL: Patient lying in bed. Appears comfortable. She is very pleasant. She knows she is at [facility], knows her name, however thinks it is May 17, 1916. He was confused when I tell her it is 2018 SKIN: Warm and dry. HEAD: Atraumatic. Normocephalic. EYES: Pupils equal and round. No scleral icterus. No injection or drainage. ENT: No nasal bleeding or discharge. Mucous membranes pink and moist. NECK: Trachea midline. No JVD. CARDIOVASCULAR: Regular rate and rhythm. RESPIRATORY: No accessory muscle use. Clear to auscultation. Breath sounds equal bilaterally. GASTROINTESTINAL: Abdomen soft, non-tender, nondistended. Hepatic and splenic margins not palpable. MUSCULOSKELETAL: Extremities without clubbing, cyanosis, or edema. No obvious deformities. NEUROLOGICAL: Awake and alert. No obvious cranial nerve deficits. Motor grossly within normal limits. Five out of 5 muscle strength in the arms and legs. Normal speech. PSYCHIATRIC: Appropriate mood and affect; insight and judgment normal. - Urinary Catheter Management Indwelling Urethral Catheter Cath placed during this visit: yes Reason for continuing: Other continuation reason Insertion date: 04/06/18 Insertion time: 22:37 Results - Labs CBC & Chem 7: 04/08/18 04:45 04/08/18 04:45 Laboratory Results - last 24 hr 04/06/18 04/07/18 04/07/18 22:30 10:43 12:22 WBC RBC Hgb Hct MCV MCH MCHC RDW Plt Count MPV Neut % (Auto) Lymph % (Auto) [place] % (Auto) Eos % (Auto) Baso % (Auto) Neut # (Auto) Lymph # (Auto) [place] # (Auto) Eos # (Auto) Baso # (Auto) WBC Differential Differential Comment Sodium Potassium Chloride Carbon Dioxide Anion Gap BUN Creatinine Estimated GFR POC Glucose 273 H Random Glucose Calcium Magnesium Total Creatine Kinase 1305 H CK-MB (CK-2) 8.0 H CK-MB (CK-2) % 0.6 Troponin I 0.02 Urine Color Yellow Urine Clarity Cloudy H Urine pH 5.0 Ur Specific [place] 1.012 Urine Protein 30 H Urine Glucose (UA) 500 or greater Urine Ketones 20 Urine Occult Blood Moderate H Urine Nitrate Positive H Urine Bilirubin Negative Urine Urobilinogen Less than 2 Ur Leukocyte Esterase Large H Urine RBC 4 H Urine WBC 159 H Urine WBC Clumps Few H Urine Bacteria Many H Hyaline Casts 2 Urine Mucus Few H Micro UA Comment Cath-culture ind Urine Culture Comments Cath-cult indicated 04/07/18 04/07/18 04/08/18 17:26 20:45 04:45 WBC 9.0 RBC 3.82 L Hgb 11.5 L Hct 34.0 L MCV 89.1 MCH 30.1 MCHC 33.8 RDW 14.4 Plt Count 329 MPV 8.0 Neut % (Auto) 60.7 Lymph % (Auto) 22.7 [place] % (Auto) 9.1 H Eos % (Auto) 6.5 H Baso % (Auto) 1.0 Neut # (Auto) 5.5 Lymph # (Auto) 2.0 [place] # (Auto) 0.8 Eos # (Auto) 0.6 H Baso # (Auto) 0.1 WBC Differential . Differential Comment Auto diff final Sodium Potassium Chloride Carbon Dioxide Anion Gap BUN Creatinine Estimated GFR POC Glucose 230 H 270 H Random Glucose Calcium Magnesium Total Creatine Kinase CK-MB (CK-2) CK-MB (CK-2) % Troponin I Urine Color Urine Clarity Urine pH Ur Specific [place] Urine Protein Urine Glucose (UA) Urine Ketones Urine Occult Blood Urine Nitrate Urine Bilirubin Urine Urobilinogen Ur Leukocyte Esterase Urine RBC Urine WBC Urine WBC Clumps Urine Bacteria Hyaline Casts Urine Mucus Micro UA Comment Urine Culture Comments 04/08/18 04:45 WBC RBC Hgb Hct MCV MCH MCHC RDW Plt Count MPV Neut % (Auto) Lymph % (Auto) [place] % (Auto) Eos % (Auto) Baso % (Auto) Neut # (Auto) Lymph # (Auto) [place] # (Auto) Eos # (Auto) Baso # (Auto) WBC Differential Differential Comment Sodium 143 Potassium 3.7 Chloride 111 H Carbon Dioxide 24.4 Anion Gap 8 BUN 24 H Creatinine 0.91 Estimated GFR 59 L POC Glucose Random Glucose 149 H D Calcium 8.0 L D Magnesium 1.8 Total Creatine Kinase 795 H CK-MB (CK-2) 3.1 CK-MB (CK-2) % 0.4 Troponin I Urine Color Urine Clarity Urine pH Ur Specific [place] Urine Protein Urine Glucose (UA) Urine Ketones Urine Occult Blood Urine Nitrate Urine Bilirubin Urine Urobilinogen Ur Leukocyte Esterase Urine RBC Urine WBC Urine WBC Clumps Urine Bacteria Hyaline Casts Urine Mucus Micro UA Comment Urine Culture Comments Microbiology 04/06/18 22:30 Catheterized Urine Urine Culture - Final Klebsiella pneumoniae - Imaging Chest X-Ray 04/06/18 22:10 CONCLUSION: 1. Prominent aortic arch, age indeterminate. I don't have any pertinent priors. If felt clinically indicated, CT of the chest with contrast is suggested. 2. Lungs appear clear. 3. Scoliosis. Head CT 04/06/18 22:10 CONCLUSION: 1. No acute intracranial abnormality. 2. Atrophy and chronic small vessel ischemic change. 3. 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 . Pelvis X-Ray 04/06/18 22:12 CONCLUSION: Intact pelvis. - Procedures None. Assessment and Plan - Plan //Suspected toxic encephalopathy At this time patient is back to her baseline //UTI. //Leukocytosis resolved Urine culture grew Klebsiella pneumonia that is sensitive to antibiotic regimen //Elevated CPK. 1762 on admission. Now returned to normal no longer needing IV fluids will continue to do p.o. fluids //Diabetes mellitus. Glucose 252 on admission. Start insulin sliding scale. Code Status: Full code. Discussed Condition With: patient and Nurse. Discharge Planning: Once cleared by specialist
--- NOTE | 2018-04-08 11:58 | P.CONPSY ---
Provisional Diagnosis Admission Date: April 07, 2018 00:14 [place] I.: Mild cognitive disorder rule out delirium History of Present Illness Service: Psychiatry Consult date: 04/08/18 Requesting Physician: Hakan Travis Reason for Consult: Assessment Primary Care Provider: UNKNOWN History of Present Illness: Patient is an 87-year-old white female who lives alone found by her neighbors with altered mental status unable to care for herself. Patient has had some altered mental status. On evaluation in the emergency department urine toxicology is positive for benzodiazepines. At the present time patient laying quietly in her bed RN present throughout session. Patient is alert quite friendly white female does know she is in [facility] she knows with some delays is 2018 think since May. She does acknowledge little problems with her memory. She does acknowledge an inability to maintain herself safely and appropriately independently but she is confused as to what her options are and what she should do. She denies any prior psychiatric contact hospitalizations or psychotropic medications. She really does not know what medication she is scheduled to take at home. 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 That she was born in [place] migrated here when she was about 23 years old. She states she does have an adult daughter that she does not get along with. She denies voices or visions with this denies any drug use. States she has struggled determined beer in the past. She acknowledges being somewhat sad about that but does not want to take any medication. In any event at this time it appears patient may be doing somewhat better than initially on admission however there may be some significant cognitive deficits with this lady I would recommend perhaps a neuropsychological evaluation, I would not recommend any specific psychiatric medications at this time. Patient at this time is not a candidate for [facility] or for 4 E. We did discuss placement in a prison where she initially was also she appear to be processing that fairly well. Feel she needs to talk with the case management coordinator more about that option. Thanks for consult will follow on a as needed basis Review of Systems All other systems reviewed negative except as stated in HPI PMFSH - History History Provided By: Patient, Medical Record (Diabetes hypertension cholecystectomy appendectomy) - Medical History Medical History: Medical History (Last Reviewed 04/07/18 @ 15:35 by Teresa Hahn PT) Diabetes High blood pressure - Social History I have reviewed the patient's Social History: Yes - Tobacco History Second Hand Smoke Exposure: No Tobacco Use In Past 30 Days: No Smoking Status: Never smoker - Alcohol History How Often Do You Have a Drink Containing Alcohol: Unable to Obtain - Travel History Recent Travel Out of the Country Within the Last 8 Weeks: No - Immunization History Tetanus Immunization: Unsure Medications and Allergies Active Medications: Active Medications Al Hydroxide/Mg Hydroxide (Milk Of Magnesia Liq) 30 ml PO Q12H PRN PRN Reason: Mild Constipation Bisacodyl (Dulcolax Supp) 10 mg RECTAL DAILY PRN PRN Reason: SEVERE CONSITIPATION Dextrose (D50w Vial) 50 ml IV.PUSH UNSCH PRN PRN Reason: PER HYPOGLYCEMIA PROTOCOL Glucagon (Glucagon Inj) 1 mg OTHER PRN PRN PRN Reason: for Hypoglycemia Protocol Ceftriaxone Sodium 1,000 mg/ (Sodium Chloride) 100 mls @ 200 mls/hr IV.SIG Q24H [facility] Last Infusion: 04/08/18 05:15 Dose: Infused Sodium Chloride (Ns Inj) 1,000 mls @ 100 mls/hr IV.CONT .Q10H [facility] Last Admin: 04/08/18 00:00 Dose: 100 mls/hr Insulin Aspart (Novolog Insulin Correctional Sugar Inj) 0 unit SQ ACHS [facility]; Protocol Last Admin: 04/08/18 09:10 Dose: Not Given Lactulose (Lactulose Liq) 30 ml PO DAILY PRN PRN Reason: SEVERE CONSITIPATION Magnesium Oxide (Mag-Ox) 400 mg PO BID [facility] Last Admin: 04/08/18 09:04 Dose: 400 mg Sennosides (Senokot) 17.2 mg PO Q12H PRN PRN Reason: Moderate Constipation Sodium Chloride (Ns Flush) 2 ml IV.FLUSH PRN PRN PRN Reason: FLUSH AFTER USING IV ACCESS Last Admin: 04/08/18 00:01 Dose: 2 ml Allergies Allergy/AdvReac Type Severity Reaction Status Date / Time Sulfa (Sulfonamide Allergy Severe Confusion Unverified 04/06/18 22:14 Antibiotics) Home Medications Medication Instructions Recorded Confirmed Type Unable to Obtain Home Meds 04/06/18 04/06/18 History Exam Vital signs: Vital Signs 04/07/18 12:00 04/07/18 16:00 04/07/18 18:35 Temperature 98.1 F 97.9 F Pulse Rate 80 66 85 Respiratory Rate 24 18 Blood Pressure 145/69 H 113/63 Pulse Oximetry 93 L 94 L 04/07/18 19:15 04/07/18 19:58 04/08/18 00:10 Temperature 97.7 F 98.8 F Pulse Rate 80 75 73 Respiratory Rate 18 17 Blood Pressure 135/73 150/67 H Pulse Oximetry 97 92 L 04/08/18 00:11 04/08/18 04:00 04/08/18 04:47 Temperature 98.3 F Pulse Rate 70 75 73 Respiratory Rate 17 Blood Pressure 160/73 H Pulse Oximetry 93 L 04/08/18 08:00 Temperature 98 F Pulse Rate 82 Respiratory Rate 17 Blood Pressure 174/82 H Pulse Oximetry 91 L Intake & Output 04/07/18 04/08/18 04/08/18 18:59 06:59 18:59 Intake Total 1780 / 1780 1460 / 1460 Output Total 400 / 400 Balance 1380 / 1380 1460 / 1460 Weight 55 kg Intake: IV 500 / 500 1100 / 1100 NS Inj 1,000 ML @ 100 mls/hr IV 500 / 500 1000 / 1000 .CONT .Q10H [facility] Rx#:[id number] Rocephin Inj 1,000 MG In NS Inj 100 / 100 100 ML @ 200 mls/hr IV.SIG Q24H [facility] Rx#:[id number] Oral 1280 / 1280 360 / 360 Output: Urine 400 / 400 Other: # Voids 3 2 Date of Last Bowel Movement 04/07/18 04/07/18 # Bowel Movements 1 0 Narrative: Patient seen laying in bed with nurse present throughout session. She is in no acute distress, patient no respiratory distress, no complaints of chest pain or abdominal pain. Patient moving all 4 extremities well laying in bed Mental Status Examination Consciousness: Alert Orientation: Person, Place Motor Activity: Other (Patient laying in bed) Speech: Unremarkable Language: Adequate (Mild Greek accent noted) Fund of Knowledge: Adequate Attention and Concentration: Adequate (Fair) Memory: Impaired Mood: Other (Euthymic to mildly dysphoric) Affect: Other (Slight decreased range and intensity) Thought Process & Associations: Disorganized Thought Content: Appropriate Hallucination Type: None Delusion Type: None Suicidal Ideation: No Suicidal Plan: No Suicidal Intention: No Homicidal Ideation: No Homicidal Plan: No Homicidal Intention: No Insight: Poor Judgment: Poor Assessment and Plan - Assessment (1) Mild cognitive disorder Code(s): F09 - Unspecified mental disorder due to known physiological condition Status: Acute (2) Delirium Code(s): R41.0 - Disorientation, unspecified Status: Acute - Plan Plan: Estimated LOS: [] days Patient remains somewhat confused disoriented though no behavior problem. Question if this is related to perhaps a delirium considering the urine toxicology positive for benzodiazepines but this is more significant cognitive disorder. Would suggest neuropsychological testing. No recommendation for medication at this time. At this time patient is not a candidate for [facility] or for 4 E. thanks for the consult will follow on a as needed basis Justification for Continued Inpatient Stay: Per med surge treatment team Discharge Planning: Per treatment team with assistance of case management coordinator help with a lady to determine appropriate placement
[2018-04-08] MEDS: Insulin Detemir Inj 1,000 UNIT/10 ML Vial SQ SCH ×2 (18:13→20:33)
[2018-04-08] MEDS: Sod Chloride 0.9% Inj 1,000 ML IV.CONT SCH ×2 (18:33)
[2018-04-09] MEDS: Sod Chloride 0.9% Inj 1,000 ML IV.CONT SCH ×3 (02:25→22:41)
[2018-04-09] MEDS: Insulin Detemir Inj 1,000 UNIT/10 ML Vial SQ SCH ×2 (09:41→20:49)
[2018-04-09] MEDS: Magnesium Oxide 400 MG Tablet PO SCH ×2 (09:41→20:47)
[2018-04-09] MEDS: Insulin NovoLOG Aspart Correctional Sugar Inj SQ SCH ×4 (09:41→20:49)
--- NOTE | 2018-04-09 11:58 | P.PNIM ---
Subjective Interval history: Patient seen and examined this morning. Afebrile vital signs stable, had one machine blood pressure of 191/88 however manual was performed and it was 162/ 88. Patient reports that she is feeling fine and is back to her baseline. Denies any pain at all. Is having normal bowel movements and normal urination. She feels that she is appropriate at this point to go home and she can take care of herself at home at this time. She is eating and drinking well without any difficulty or abdominal pain. Physical Exam Vital signs: Vital Signs 04/08/18 12:00 04/08/18 16:00 04/08/18 20:00 Temperature 98.1 F 97.8 F 98.1 F Pulse Rate 92 H 85 89 Respiratory Rate 18 Blood Pressure 167/77 H 175/90 H 175/79 H Pulse Oximetry 93 L 95 93 L 04/09/18 00:00 04/09/18 04:00 04/09/18 08:00 Temperature 98.5 F 97.9 F 98.0 F Pulse Rate 81 71 83 Respiratory Rate 18 Blood Pressure 168/74 H 129/63 191/88 H Pulse Oximetry 93 L 94 L 96 04/09/18 08:45 Temperature Pulse Rate 85 Respiratory Rate Blood Pressure 162/88 H Pulse Oximetry Intake & Output 04/08/18 04/09/18 04/09/18 18:59 06:59 18:59 Intake Total 200 / 200 Balance 200 / 200 Weight 55.3 kg Intake: IV 100 / 100 Rocephin Inj 1,000 MG In NS Inj 100 / 100 100 ML @ 200 mls/hr IV.SIG Q24H [facility] Rx#:[id number] Oral 100 / 100 Other: # Voids 2 Date of Last Bowel Movement 04/07/18 04/07/18 04/07/18 Narrative: GEN: Well-developed, well-nourished patient. No acute distress. CV: Regular rate and rhythm without obvious murmurs LUNGS: Clear to auscultation bilaterally. Normal respiratory effort. No wheezes , rales, rhonchi. GI: Soft, nontender, nondistended. No palpable masses. Bowel sounds WNL. EXT: No edema. NEURO/PSYCH: Afocal. Awake, alert, and oriented x3. Appropriate insight and judgment. - Urinary Catheter Management Indwelling Urethral Catheter Cath placed during this visit: yes Reason for continuing: Other continuation reason Insertion date: 04/06/18 Insertion time: 22:37 Results - Labs CBC & Chem 7: 04/08/18 04:45 04/08/18 04:45 Laboratory Results - last 24 hr 04/08/18 04/08/18 04/08/18 09:08 12:23 17:08 POC Glucose 158 H 253 H 220 H 04/08/18 04/09/18 20:06 09:24 POC Glucose 347 H 269 H Microbiology 04/06/18 23:30 Blood - Peripheral Aerobic Blood Culture - Preliminary No growth in 2 days 04/06/18 23:30 Blood - Peripheral Anaerobic Blood Culture - Preliminary No growth in 2 days 04/06/18 23:45 Blood - Peripheral Aerobic Blood Culture - Preliminary No growth in 2 days 04/06/18 23:45 Blood - Peripheral Anaerobic Blood Culture - Preliminary No growth in 2 days 04/06/18 22:30 Catheterized Urine Urine Culture - Final Klebsiella pneumoniae - Procedures None. Assessment and Plan - Assessment (1) Altered mental status Code(s): R41.82 - Altered mental status, unspecified Status: Acute (2) UTI (urinary tract infection) Code(s): N39.0 - Urinary tract infection, site not specified Status: Acute (3) Rhabdomyolysis Code(s): M62.82 - Rhabdomyolysis Status: Acute (4) Diabetes mellitus Code(s): E11.9 - Type 2 diabetes mellitus without complications Status: Acute - Plan //Suspected toxic encephalopathy At this time patient is back to her baseline //UTI. //Leukocytosis resolved Urine culture grew Klebsiella pneumonia that is sensitive to antibiotic regimen //Elevated CPK. 1762 on admission. Now returned to normal no longer needing IV fluids will continue to do p.o. fluids //Diabetes mellitus. Glucose 252 on admission. Start insulin sliding scale. 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
--- NOTE | 2018-04-09 13:58 | P.DS ---
Date of admission: 04/07/18 00:14 Primary care physician: UNKNOWN Attending physician on discharge: Gurjit Child Anticipated date of discharge: 04/09/18 Brief History from admission: 87-year-old female diabetes who is found on the floor in her home by neighbors. History is limited by confusion. Patient is very pleasant however. Says the year is 1917, and that it is April. She says that she was feeling depressed yesterday, on account of the weather, decided not to take any of her medications. She is not sure what her medications are. She says she is feeling all right however. She denies taking any kind of benzodiazepine, however drug screen is positive for benzodiazepine. She denies any fevers, chills, chest pain, shortness of breath, nausea, vomiting, diarrhea, constipation, dysuria. DS: Diagnosis - Discharge Diagnosis (1) Altered mental status Status: Acute (2) UTI (urinary tract infection) Status: Acute (3) Rhabdomyolysis Status: Acute (4) Diabetes mellitus Status: Acute DS: Summary Hospital Course: Patient was admitted for altered mental status likely due to urinary tract infection and mild rhabdomyolysis. She quickly improved with fluids and antibiotics. Return to her baseline. She was evaluated by [facility] and agreed to be discharged there. By the time she was discharged she was back to her baseline. And will be going to try [facility] - Time Spent with Patient Total time spent providing and/or coordinating discharge services: Less than 30 minutes Exam Vital signs: Vital Signs 04/08/18 16:00 04/08/18 20:00 04/09/18 00:00 Temperature 97.8 F 98.1 F 98.5 F Pulse Rate 85 89 81 Respiratory Rate 17 18 18 Blood Pressure 175/90 H 175/79 H 168/74 H Pulse Oximetry 95 93 L 93 L 04/09/18 04:00 04/09/18 08:00 04/09/18 08:45 Temperature 97.9 F 98.0 F Pulse Rate 71 83 85 Respiratory Rate 18 18 Blood Pressure 129/63 191/88 H 162/88 H Pulse Oximetry 94 L 96 04/09/18 12:00 Temperature 97.2 F L Pulse Rate 99 H Respiratory Rate 18 Blood Pressure 173/88 H Pulse Oximetry 95 Intake & Output 04/08/18 04/09/18 04/09/18 18:59 06:59 18:59 Intake Total 200 / 200 Balance 200 / 200 Weight 55.3 kg Intake: IV 100 / 100 Rocephin Inj 1,000 MG In NS Inj 100 / 100 100 ML @ 200 mls/hr IV.SIG Q24H [facility] Rx#:[id number] Oral 100 / 100 Other: # Voids 2 Date of Last Bowel Movement 04/07/18 04/07/18 04/07/18 Narrative: GEN: Well-developed, well-nourished patient. No acute distress. CV: Regular rate and rhythm without obvious murmurs LUNGS: Clear to auscultation bilaterally. Normal respiratory effort. No wheezes , rales, rhonchi. GI: Soft, nontender, nondistended. No palpable masses. Bowel sounds WNL. EXT: No edema. NEURO/PSYCH: Afocal. Awake, alert, and oriented x3. Appropriate insight and judgment. Results Procedures completed during hospitalization: None. Labs on day of discharge: Labs from last 24 hours 04/09/18 04/09/18 04/08/18 11:58 09:24 20:06 POC Glucose 254 H 269 H 347 H 04/08/18 04/08/18 17:08 09:08 POC Glucose 220 H 158 H Preliminary micro results at discharge 04/06/18 23:30 Aerobic Blood Culture - Preliminary Blood - Peripheral No growth in 2 days Anaerobic Blood Culture - Preliminary No growth in 2 days 04/06/18 23:45 Aerobic Blood Culture - Preliminary Blood - Peripheral No growth in 2 days Anaerobic Blood Culture - Preliminary No growth in 2 days - Impressions ITS Impressions Chest X-Ray 04/06/18 22:10 CONCLUSION: 1. Prominent aortic arch, age indeterminate. I don't have any pertinent priors. If felt clinically indicated, CT of the chest with contrast is suggested. 2. Lungs appear clear. 3. Scoliosis. Head CT 04/06/18 22:10 CONCLUSION: 1. No acute intracranial abnormality. 2. Atrophy and chronic small vessel ischemic change. 3. 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 . Pelvis X-Ray 04/06/18 22:12 CONCLUSION: Intact pelvis. Discharge Plan - Discharge Disposition Patient Disposition: Discharge to SNF - Discharge Condition Condition: Stable - Discharge Order Discharge Orders: Discharge Order (Routine); Ordered 11/11/18 Ordered By: Gurjit Child - Discharge Details Anticipated Discharge Date: 04/09/18 - Physicians Team Primary Care Provider: UNKNOWN, Attending Provider: Gurjit Child Other Providers: Chantelle Lockhart ; Nolan Sun MD ; [facility] ,[place] ; [facility],[place]
[2018-04-09] MEDS: Amoxicillin/Clavulanate 500/125 MG Tablet PO SCH (22:40)
[2018-04-10 08:40] VITALS: PULSE 77; RESP 20
[2018-04-10] MEDS: Magnesium Oxide 400 MG Tablet PO SCH (09:36)
[2018-04-10] MEDS: Amoxicillin/Clavulanate 500/125 MG Tablet PO SCH (09:36)
[2018-04-10] MEDS: Insulin Detemir Inj 1,000 UNIT/10 ML Vial SQ SCH (09:36)
--- NOTE | 2018-04-10 09:39 | P.PN ---
Subjective Interval history: Follow up for UTI with encephalopathy. The patient reports feeling well today. Denies any fevers/chills, lightheadedness, chest pain, shortness of breath, abdominal pain, or urinary complaints. She does endorse feeling generally weak. She agrees to rehab placement. She states currently she lives alone. She has no other medical complaints at this time. Physical Exam Vital signs: Vital Signs 04/09/18 12:00 04/09/18 12:45 04/09/18 16:00 Temperature 97.2 F L 97.7 F Pulse Rate 99 H 80 76 Respiratory Rate 18 18 Blood Pressure 173/88 H 160/78 H 174/79 H Pulse Oximetry 95 95 04/09/18 20:00 04/10/18 00:00 04/10/18 01:10 Temperature 98.1 F 97.4 F L Pulse Rate 86 83 Respiratory Rate 18 Blood Pressure 172/79 H 192/85 H 163/63 H Pulse Oximetry 95 94 L 04/10/18 08:00 Temperature 98.2 F Pulse Rate 77 Respiratory Rate 20 Blood Pressure 154/71 H Pulse Oximetry 94 L Intake & Output 04/09/18 04/10/18 04/10/18 18:59 06:59 18:59 Intake Total 100 / 100 Balance 100 / 100 Weight 55.3 kg Intake: Oral 100 / 100 Other: # Voids 4 Date of Last Bowel Movement 04/07/18 04/07/18 Narrative: GENERAL: Well-nourished, well-developed pleasant elderly female patient in [facility]. SKIN: Warm and dry. No rash. HEENT: Normocephalic. Atraumatic. Pupils equal and round. Mucous membranes pink and moist. CARDIOVASCULAR: Regular rate and rhythm. No murmur appreciated. RESPIRATORY: No accessory muscle use. Clear to auscultation. Breath sounds equal bilaterally. GASTROINTESTINAL: Abdomen soft, non-tender, nondistended. Normoactive bowel sounds x4. MUSCULOSKELETAL: No obvious deformities. Extremities without clubbing, cyanosis , or edema. NEUROLOGICAL: Awake and alert. No obvious cranial nerve deficits. Moving all extremities spontaneously, but generalized weakness. Normal speech. PSYCHIATRIC: Appropriate mood and affect; insight and judgment normal. - Urinary Catheter Management Indwelling Urethral Catheter Cath placed during this visit: yes Reason for continuing: Other continuation reason Insertion date: 04/06/18 Insertion time: 22:37 Results - Labs CBC & Chem 7: 04/08/18 04:45 04/08/18 04:45 Laboratory Results - last 24 hr 04/09/18 04/09/18 04/09/18 09:24 11:58 17:16 POC Glucose 269 H 254 H 196 H 04/09/18 19:30 POC Glucose 297 H Microbiology 04/06/18 23:30 Blood - Peripheral Aerobic Blood Culture - Preliminary No growth in 2 days 04/06/18 23:30 Blood - Peripheral Anaerobic Blood Culture - Preliminary No growth in 2 days 04/06/18 23:45 Blood - Peripheral Aerobic Blood Culture - Preliminary No growth in 2 days 04/06/18 23:45 Blood - Peripheral Anaerobic Blood Culture - Preliminary No growth in 2 days - Imaging Chest X-Ray 04/06/18 22:10 CONCLUSION: 1. Prominent aortic arch, age indeterminate. I don't have any pertinent priors. If felt clinically indicated, CT of the chest with contrast is suggested. 2. Lungs appear clear. 3. Scoliosis. Head CT 04/06/18 22:10 CONCLUSION: 1. No acute intracranial abnormality. 2. Atrophy and chronic small vessel ischemic change. 3. 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 . Pelvis X-Ray 04/06/18 22:12 CONCLUSION: Intact pelvis. - Procedures None. Assessment and Plan - Assessment (1) Altered mental status Code(s): R41.82 - Altered mental status, unspecified Status: Acute (2) UTI (urinary tract infection) Code(s): N39.0 - Urinary tract infection, site not specified Status: Acute (3) Rhabdomyolysis Code(s): M62.82 - Rhabdomyolysis Status: Acute (4) Diabetes mellitus Code(s): E11.9 - Type 2 diabetes mellitus without complications Status: Acute - Plan 87-year-old female patient admitted for altered mental status likely due to urinary tract infection and mild rhabdomyolysis. She was given IVF hydration and IV Rocephin. Urine culture with Klebsiella, transitioned antibiotics to Augmentin. She quickly improved with fluids and antibiotics. Returned to her baseline mentation. PT recommending rehab. Plan for patient to go to [facility], pending insurance authorization. See discharge summary from 04/09. Discharge Planning: Discharge pending insurance authorization to go to [facility]. See discharge summary from 04/09.
[2018-04-10 13:30] VITALS: BP 151/72; TEMP 97.7; O2SAT 93
[2018-04-10] MEDS: Insulin NovoLOG Aspart Correctional Sugar Inj SQ SCH (16:03)
== END 2018-04-10 18:22 ==
LOC: NEPC 21:51 → NEDA 04-07 00:14 → N06 04-07 02:12
PROVIDERS: ADMIT Internal Medicine; ATTEND Internal Medicine